=== PATIENT | female | born 1940 | race Caucasian/White ===

== ENCOUNTER 2017-02-15 08:23 | Day surgery (SDC) | payer MEDICARE, BC ==
[~2017-02-15 08:23] MED LIST: CEFAZOLIN SODIUM 1 GM PDS ONE; LIDOCAINE HCL 1% MPF SOL ONE; PROPOFOL 500 MG/50 ML EMU IV ONE
[2017-02-15] MEDS ORDERED: GLYCOPYRROLATE 0.2 MG/ML SOL ONE (09:37)
[2017-02-15 10:02] VITALS: RESP 20
[2017-02-15 10:31] VITALS: BP 138/72; PULSE 79; TEMP 97.5; O2SAT 94
== END 2017-02-15 10:40 | disposition home or self-care (01) | DRG 951 ==
LOC: SURG 08:23
PROVIDERS: ATTEND Surgery
DX: Z12.11 Encounter for screening for malignant neoplasm of colon (principal); K57.30 Diverticulosis of large intestine without perforation or abscess without bleeding; K62.1 Rectal polyp
CPT/HCPCS: J0690; J7643; J2001; J2704